=== PATIENT | female | born 1980 | race Caucasian/White ===

== ENCOUNTER 2023-02-25 13:04 | Emergency (ER) | payer MEDICAID ==
[~2023-02-25] VITALS: Ht 157.5 cm; Wt 63.5 kg
[2023-02-25 13:17] VITALS: BP 136/74; PULSE 136; RESP 16; O2SAT 100
[2023-02-25 13:30] VITALS: TEMP 98.5
[2023-02-25] MEDS ORDERED: ACETAMINOPHEN 325MG TABLET PO ONE (13:30)
[2023-02-25] MEDS ORDERED: HYDR-4001 MT (16:30)
[2023-02-25] MEDS ORDERED: IBUP-1523 MT (16:30)
== END 2023-02-25 16:53 | disposition home or self-care (01) ==
LOC: ER 13:04
DX: M79.672 Pain in left foot (principal); Z91.018 Allergy to other foods; Z88.8 Allergy status to other drugs, medicaments and biological substances
CPT/HCPCS: 73590; 73600; 29505; 99284; Z7610